=== PATIENT | female | born 1990 | race African-American/Black ===

== ENCOUNTER 2018-07-04 11:37 | Emergency (ER) | payer MEDICAID ==
[~2018-07-04] VITALS: Ht 162.6 cm; Wt 80.3 kg
[2018-07-04 11:50] VITALS: BP_SYST 133
[2018-07-04] MEDS ORDERED: LIDOCAINE 1% 10 MG/ML, 20 ML MDV IJ ONE (12:00)
[2018-07-04] MEDS ORDERED: BACITRACIN 1 GM OINT TP ONE (12:00)
[2018-07-04 12:21] LABS: BASOPHILS % (AUTO) 0.2 % (0.0-2.0); EOSINOPHILS % (AUTO) 0.1 % (0.0-4.0); HEMATOCRIT 30.6 % (36-48); HEMOGLOBIN 10.2 g/dL (12.0-16.0); LYMPHOCYTES # (AUTO) 2.3 K/uL (1.0-5.5); LYMPHOCYTES % (AUTO) 20.9 % (20.5-51.5); MEAN CORPUSCULAR HEMOGLOBIN 29 pg (27-31); MEAN CORPUSCULAR HGB CONC 34 % (32-36); MEAN CORPUSCULAR VOLUME 88 fL (79.0-98.0); MONOCYTES # (AUTO) 1.2 K/uL (0.0-1.0); MONOCYTES % (AUTO) 11.2 % (1.7-9.3); NEUTROPHILS # (AUTO) 7.5 K/uL (1.8-7.7); NEUTROPHILS % (AUTO) 67.6 % (40.0-70.0); PLATELET COUNT (AUTO) 163 K/uL (130-430); RED BLOOD CELL COUNT(AUTO) 3.49 MIL/uL (4.2-6.2); RED CELL DISTRIBUTION WIDTH 12.6 % (9.0-15.0)
[2018-07-04 13:40] VITALS: BP_SYST 131
== END 2018-07-04 13:40 | disposition home or self-care (01) ==
LOC: SED 11:37
DX: L02.416 Cutaneous abscess of left lower limb (principal); L03.116 Cellulitis of left lower limb; R03.0 Elevated blood-pressure reading, without diagnosis of hypertension; Z85.3 Personal history of malignant neoplasm of breast
CPT/HCPCS: 10060; 36415; 85025; 99283; J2001